=== PATIENT | male | born 1975 | race Hispanic/Latino ===

== ENCOUNTER 2018-10-18 11:32 | Observation (INO) | payer OTHER ==
[~2018-10-18] VITALS: Ht 180.3 cm; Wt 116.6 kg
[2018-10-18 12:09] LABS: BASOPHILS % 0.2 % (0.0-1.0); EOSINOPHILS % 0.1 % (0.0-6.0); LYMPHOCYTES # (AUTO) 1.8 (1.0-3.2); LYMPHOCYTES % 16.6 % (18.0-39.1); MEAN CORPUSCULAR HEMOGLOBIN 27.6 pg (28-32); MEAN CORPUSCULAR HGB CONC 32.6 g/dL (31-35); MEAN CORPUSCULAR VOLUME 84.6 fL (81-99); MONOCYTES # (AUTO) 0.8 (0.2-0.8); MONOCYTES % 6.9 % (4.4-11.3); NEUTROPHILS # (AUTO) 8.3 (2.1-6.9); NEUTROPHILS % 75.8 % (38.7-80.0); PLATELET COUNT 301 x10e3/uL (140-360); RED BLOOD COUNT 5.44 x10e6/uL (4.3-5.7); RED CELL DISTRIBUTION WIDTH 12.3 % (11.7-14.4)
[2018-10-18 12:11] LABS: BILIRUBIN,URINE NEGATIVE (NEGATIVE); CLARITY,URINE CLEAR (CLEAR); COLOR,URINE YELLOW (YELLOW); KETONES,URINE NEGATIVE (NEGATIVE); LEUKOCYTE ESTERASE ,URINE NEGATIVE (NEGATIVE); NITRITE,URINE NEGATIVE (NEGATIVE); PROTEIN,URINE DIPSTICK NEGATIVE (NEGATIVE); URINE UROBILINOGEN 0.2 mg/dL (0.2 - 1)
[2018-10-18 12:25] LABS: EPITHELIAL CELLS,URINE RARE /LPF
[2018-10-18 12:29] LABS: ALANINE AMINOTRANSFERASE 176 IU/L (0-55); ALBUMIN 4.1 g/dL (3.5-5.0); ALBUMIN/GLOBULIN RATIO 0.9 (0.8-2.0); ALKALINE PHOSPHATASE 82 IU/L (40-150); ANION GAP 13.9 mmol/L (8-16); BLOOD UREA NITROGEN 15 mg/dL (7-26); BUN/CREATININE RATIO 18 (6-25); CALCIUM 9.8 mg/dL (8.4-10.2); CARBON DIOXIDE 24 mmol/L (22-29); CHLORIDE 98 mmol/L (98-107); CREATININE, SERUM 0.84 mg/dL (0.72-1.25); EST GLOMERULAR FILTRATION RATE > 60 ML/MIN (60-); GLUCOSE 91 mg/dL (74-118); MAGNESIUM 2.2 MG/DL (1.3-2.1); POTASSIUM 3.9 mmol/L (3.5-5.1); SODIUM 132 mmol/L (136-145)
--- NOTE | 2018-10-18 13:32 | Diagnostic Imaging Report ---
EXAMINATION: CT of the abdomen and pelvis with contrast. TECHNIQUE: Spiral CT images of the abdomen and pelvis were performed from the lung bases to the lesser trochanters after the intravenous administration of 100 cc Isovue-370. Coronal and sagittal reformatted images were obtained. COMPARISON: None. CLINICAL HISTORY:Right-sided abdominal pain DISCUSSION: ABDOMEN/PELVIS: LOWER THORAX:Unremarkable. HEPATOBILIARY: No focal hepatic lesions. No intra-or extrahepatic biliary ductal dilation. The gallbladder is normal. SPLEEN: No splenomegaly. PANCREAS: No focal masses or ductal dilatation. ADRENALS: No adrenal nodules. KIDNEYS/URETERS: Left renal parenchymal cyst. No hydronephrosis, calculi, or gross mass lesion. PELVIC ORGANS/BLADDER: The bladder is normal. PERITONEUM/RETROPERITONEUM: No free air or fluid. LYMPH NODES: No intra-abdominal, retroperitoneal, pelvic or inguinal lymphadenopathy. VESSELS: Abdominal aorta, major branch vessels, and iliac arterial systems are well-visualized and patent. Portal vein, splenic vein, and central superior mesenteric vein are patent. GI TRACT: The appendix is distended, with wall thickening, enhancement, and adjacent periappendiceal inflammation. Maximum appendiceal caliber is approximately 1.2 cm. Remainder of the large bowel is unremarkable. No small bowel dilatation to suggest obstruction. BONES AND SOFT TISSUE: No osseous destructive lesions. No focal soft tissue abnormalities. IMPRESSION: Acute appendicitis without ramakrishna perforation or drainable fluid collection. Findings discussed with MAXWELL Mata at 1325 hours 10/18/18. Signed by: Dr. Artem Prieto M.D. on 10/18/2018 1:29 PM
[2018-10-18] MEDS ORDERED: SODIUM CHLORIDE 0.9% 1000ML 1,000 ML IV SCH (13:35)
[2018-10-18] MEDS ORDERED: MORPHINE SULFATE 2 MG/ML SYR 1ML IV PRN (13:45)
[2018-10-18] MEDS ORDERED: MORPHINE SULFATE INJ 4 MG/ML INJ 1ML IV PRN ×2 (13:45→18:30)
[2018-10-18] MEDS ORDERED: CEFOXITIN 2GM/ D5W 50ML 50 ML IV SCH (14:00)
[2018-10-18] MEDS ORDERED: SODIUM CHLORIDE 0.9% 50ML 50 ML ONE (14:08)
[2018-10-18] MEDS ORDERED: IOPAMIDOL 370 MG/ML 200 ML INFUS..BTL INJ ONE (14:08)
[2018-10-18] MEDS: FAMOTIDINE 20 MG/2 ML VIAL IV SCH (15:15)
[2018-10-18] MEDS: ONDANSETRON HCL INJ 2MG/ML 2ML 2 MG/ML VIAL IV PRN ×2 (15:15→21:34)
--- OUTSIDE RECORDS SUMMARY | 2018-10-18 15:36 | XMS REPORT ---
Author [facility] Address Unknown Phone Unavailable Care Team Providers Care Glass Inspector Name Role Phone Jose MORILLO Unavailable Unavailable Problems This patient has no known problems. Allergies, Adverse Reactions, Alerts This patient has no known allergies or adverse reactions. Medications This patient has no known medications. Results Test Description Test Time Test Comments Text Results Atomic Results Result Comments CT ABDOMEN/PELVIS W 2018-10-18 13:22:00 [place] [address] Patient Name: MAGDALENO RODRIGUEZ MR #: [id number] : 1975 Age/Sex: 42/M Req #: [id number] Adm Physician: Ordered by: AMADO DOMINGUEZ NP Report #: [id number] Location: ER Room/Bed: Procedure: [id number] CT/CT ABDOMEN/PELVIS W Exam Date: 10/18/18 Exam Time: 1300 REPORT STATUS: Signed EXAMINATION: CT of the abdomen and pelvis with contrast. TECHNIQUE: Spiral CT images of the abdomen and pelvis were performed from the lung bases to the lesser trochanters after the intravenous administration of 100 cc Isovue-370. Coronal and sagittal reformatted images were obtained. COMPARISON: None. CLINICAL HISTORY:Right-sided abdominal pain DISCUSSION: ABDOMEN/PELVIS: LOWER THORAX:Unremarkable. HEPATOBILIARY: No focal hepatic lesions. No intra-or extrahepatic biliary ductal dilation. The gallbladder is normal. SPLEEN: No splenomegaly. PANCREAS: No focal masses or ductal dilatation. ADRENALS: No adrenal nodules. KIDNEYS/URETERS: Left renal parenchymal cyst. No hydronephrosis, calculi, or gross mass lesion. PELVIC ORGANS/BLADDER: The bladder is normal. PERITONEUM/RETROPERITONEUM: No free air or fluid. LYMPH NODES: No intra-abdominal, retroperitoneal, pelvic or inguinal lymphadenopathy. VESSELS: Abdominal aorta, major branch vessels, and iliac arterial systems are well-visualized and patent. Portal vein, splenic vein, and central superior mesenteric vein are patent. GI TRACT: The appendix is distended, with wall thickening, enhancement, and adjacent periappendiceal inflammation. Maximum appendiceal caliber is approximately 1.2 cm. Remainder of the large bowel is unremarkable. No small bowel dilatation to suggest obstruction. BONES AND SOFT TISSUE: No osseous destructive lesions. No focal soft tissue abnormalities. IMPRESSION: Acute appendicitis without ramakrishna perforation or drainable fluid collect ion. Findings discussed with MAXWELL Dominguez at 1325 hours 10/18/18. Signed by: Dr. Dianna Leon M.D. on 10/18/2018 1:29 PM Dictated By: DIANNA LEON MD [id number] Transcribed By: IBIS on 10/18/18 1329 COPY TO: AMADO DOMINGUEZ NP
[2018-10-18] MEDS ORDERED: BUPIVACAINE HCL 0.5% INJ 30 ML VIAL INJ ONE (16:40)
[2018-10-18] MEDS ORDERED: LACTATED RINGER'S 1,000 ML ONE (16:57)
[2018-10-18] MEDS ORDERED: ACETAMINOPHEN 325 MG TAB PO PRN (18:15)
[2018-10-18] MEDS ORDERED: HYDROCODONE/APAP 7.5MG-325MG 1 EA TAB PO PRN (18:15)
[2018-10-18] MEDS ORDERED: MORPHINE SULFATE 5 MG/ML VIAL IV PRN (18:15)
[2018-10-18] MEDS ORDERED: HYDROMORPHONE 2MG/ML 2 MG/ML ML ONE (18:52)
[2018-10-18] MEDS ORDERED: MIDAZOLAM HCL 2 MG/2 ML VIAL ONE (19:07)
[2018-10-18] MEDS ORDERED: FENTANYL CITRATE/PF 100MCG/2 ML INJ ONE (19:07)
[2018-10-18] MEDS ORDERED: ROCURONIUM BROMIDE 10 MG/ML 5ML VIAL ONE (19:23)
[2018-10-18] MEDS ORDERED: PROPOFOL IV EMULSION 10 MG/ML 20 ML VIAL ONE (19:23)
[2018-10-18] MEDS ORDERED: NEOSTIGMINE 5 MG/5ML SYR ONE (19:23)
[2018-10-18] MEDS ORDERED: KETOROLAC TROMETHAMINE 30 MG/ML VIAL ONE (19:23)
[2018-10-18] MEDS ORDERED: SEVOFLURANE INHAL SOLN 250 ML PEN BTL ONE (19:23)
[2018-10-18] MEDS ORDERED: LIDOCAINE HCL 2% LOCAL INJ 5 ML SDV VIAL INJ ONE (19:23)
[2018-10-18] MEDS ORDERED: DEXAMETHASONE SOD PHOS INJ 4 MG/ML VIAL ONE (19:23)
[2018-10-18] MEDS ORDERED: ONDANSETRON HCL INJ 2MG/ML 2ML 2 MG/ML VIAL ONE (19:23)
[2018-10-18] MEDS ORDERED: ATROPINE SULFATE 1 MG/ML VIAL ONE (19:23)
[2018-10-18] MEDS ORDERED: SUCCINYLCHOLINE 200 MG/10 ML SYR ONE (19:23)
--- NOTE | 2018-10-18 19:25 | NUR ---
pt arrived to the [facility] from [facility] in a stretcher .s/p lap appy.aaox4.assessment done.no resp.distress.abdomen 3 trochar sites noted.dry and intact.abd.pain voiced 5/10.ns running to left forarm #20 .scd applied.oriented to the unit.family member at bed side.bed locked and in lowest position.phone and call light within reach.instructed to call for assistance as needed.
[2018-10-18 19:30] VITALS: BP 99/56
[2018-10-18 20:00] VITALS: BP 108/64
[2018-10-18] MEDS: SODIUM CHLORIDE 0.9% 1000ML 1,000 ML IV SCH (20:40)
[2018-10-18 21:00] VITALS: BP 100/66
--- NOTE | 2018-10-18 22:00 | NUR ---
PAIN MEDICATION GIVEN.USES INCENTIVE SPIROMETER.
[2018-10-18] MEDS: SODIUM CHLORIDE 0.9% IV SCH (22:17)
[2018-10-18] MEDS: CEFOXITIN SODIUM IV SCH (22:17)
[2018-10-19] VITALS: BP 92/51
--- NOTE | 2018-10-19 00:10 | NUR ---
Resting comfortably in the bed.
--- NOTE | 2018-10-19 00:38 | Consultation ---
DATE OF CONSULTATION: 10/18/2018 REFERRING PHYSICIAN: Dr. Kamryn Zuluaga. HISTORY OF PRESENT ILLNESS: The patient is a 42-year-old male, who presents with complaints of abdominal pain. Says the pain started yesterday periumbilical and persisted all day, now is localized to right lower quadrant with associated nausea. He has not had any fever, no vomiting. Evaluation with CT of the abdomen and pelvis reveals findings of acute appendicitis. PAST MEDICAL HISTORY: Significant for hypertension, for which he takes lisinopril. PAST SURGICAL HISTORY: He has had no previous surgery. ALLERGIES: THERE ARE NO KNOWN ALLERGIES. FAMILY HISTORY: Noncontributory. SOCIAL HISTORY: The patient does not smoke cigarettes. Rarely drinks alcohol. REVIEW OF SYSTEMS: As stated above, otherwise was negative. PHYSICAL EXAMINATION: GENERAL: The patient is awake, alert, no distress. VITAL SIGNS: The vital signs were normal. HEENT: Unremarkable. Sclerae nonicteric. NECK: Supple. No masses. LUNGS: Equal breath sounds, clear bilaterally. CARDIAC: Regular rate and rhythm with no murmur. ABDOMEN: Tender in right lower quadrant. Signs of peritonitis localized to right lower quadrant. There is no mass. EXTREMITIES: Have no edema. NEUROLOGIC: Exam was grossly intact. ASSESSMENT AND PLAN: A 42-year-old male with acute appendicitis. He will benefit from appendectomy, which I plan to schedule for today. Procedure was explained to the patient including risks, benefits, and alternatives. He understands the procedure. He has had the opportunity to ask questions. open surgery. Thank you for asking me to see Mr. Hart. MD YUMIKO Davis/JUVENAL /[id number]
--- NOTE | 2018-10-19 01:08 | Operative Report ---
DATE OF PROCEDURE: 10/18/2018 SURGEON: Artem Narayanan MD PREOPERATIVE DIAGNOSIS: Acute appendicitis. POSTOPERATIVE DIAGNOSIS: Acute appendicitis. PROCEDURE: Diagnostic laparoscopy, laparoscopic appendectomy. ROLL MILL OPERATOR: None. ANESTHESIA: General. INDICATIONS AND FINDINGS: The patient is a 42-year-old male, admitted with complaints of 1-day history of abdominal pain, localized right lower quadrant. Certainly, the patient was found to have acutely inflamed appendix. TECHNIQUE: After adequate general endotracheal anesthesia, the patient in supine position, the abdomen was prepped and draped in a sterile fashion with ChloraPrep solution. Skin in the umbilicus was infiltrated with 0.5% Marcaine. Incision made in the umbilicus, abdominal wall was elevated, and Veress needle was introduced. Pneumoperitoneum was then created. A 10 mm trocar and cannula were then passed through the umbilical wound. Laparoscopic camera was introduced. Initial laparoscopy revealed inflammatory process in the right lower quadrant. A 12 mm trocar and cannula placed suprapubically and a 5 mm trocar and cannula placed right upper quadrant. These were placed under direct vision. The cecum was elevated. There were some fibrinous adhesions around the appendix, which were broken up. A window was created between the base of the appendix and mesoappendix. The base of the appendix was divided close to the cecum with Endo-PAPITO stapler. The mesoappendix also divided with the Endo-PAPITO stapler freeing the appendix completely. Small amount of bleeding from the mesoappendix was controlled with a hemoclip and hemostasis achieved. The appendix was then placed into an Endopouch and brought out through the suprapubic cannula. Care was taken that it did not touch the abdominal wall. There, the appendectomy was inspected for hemostasis, which was seen to be adequate. It was irrigated with saline. All fluid aspirated and inspected for hemostasis, which was seen to be adequate. It was irrigated once again with saline. All fluid aspirated from the pelvis from the right side of the abdomen from above the liver. Inspected for hemostasis, which was seen to be adequate. Instruments and cannulas were then removed. Pneumoperitoneum was evacuated. Wounds were then closed. Fascia in the umbilical and suprapubic would closed with 0 Vicryl. Skin to all wounds closed with lei. Sterile dressing was applied to each wound. The patient tolerated procedure well. Estimated blood loss was 15 mL. There were no complications. All counts were correct. The patient was taken to the recovery room in satisfactory condition. MD YUMIKO Davis/JUVENAL /[id number]
--- NOTE | 2018-10-19 02:32 | NUR ---
Pt voided.stable condition.
--- NOTE | 2018-10-19 03:30 | NUR ---
PT AMBULATES TO THE BATH ROOM.VOIDED.NO PASSING GAS.
[2018-10-19 04:00] VITALS: BP 94/53
[2018-10-19] MEDS ORDERED: LISINOPRIL10 MG PO (05:35)
[2018-10-19] MEDS: CEFOXITIN SODIUM IV SCH (05:36)
[2018-10-19] MEDS: SODIUM CHLORIDE 0.9% IV SCH (05:36)
[2018-10-19] MEDS: SODIUM CHLORIDE 0.9% 1000ML 1,000 ML IV SCH (05:36)
[2018-10-19 05:55] LABS: BASOPHILS % 0.1 % (0.0-1.0); HEMATOCRIT 40.2 % (38.2-49.6); HEMOGLOBIN 12.8 g/dL (14.0-18.0); LYMPHOCYTES # (AUTO) 1.4 (1.0-3.2); LYMPHOCYTES % 14.2 % (18.0-39.1); MEAN CORPUSCULAR HEMOGLOBIN 27.6 pg (28-32); MEAN CORPUSCULAR HGB CONC 31.8 g/dL (31-35); MEAN CORPUSCULAR VOLUME 86.8 fL (81-99); MONOCYTES # (AUTO) 0.4 (0.2-0.8); MONOCYTES % 4.3 % (4.4-11.3); NEUTROPHILS # (AUTO) 8.2 (2.1-6.9); PLATELET COUNT 270 x10e3/uL (140-360); RED BLOOD COUNT 4.63 x10e6/uL (4.3-5.7); RED CELL DISTRIBUTION WIDTH 12.3 % (11.7-14.4)
--- NOTE | 2018-10-19 06:00 | NUR ---
Pt tolerated the diet.
[2018-10-19 06:21] LABS: ANION GAP 11.1 mmol/L (8-16); BLOOD UREA NITROGEN 17 mg/dL (7-26); BUN/CREATININE RATIO 21 (6-25); CALCIUM 8.4 mg/dL (8.4-10.2); CARBON DIOXIDE 23 mmol/L (22-29); CHLORIDE 102 mmol/L (98-107); CREATININE, SERUM 0.81 mg/dL (0.72-1.25); EST GLOMERULAR FILTRATION RATE > 60 ML/MIN (60-); GLUCOSE 117 mg/dL (74-118); POTASSIUM 4.1 mmol/L (3.5-5.1); SODIUM 132 mmol/L (136-145)
[2018-10-19 06:36] LABS: BAND NEUTROPHILS % (MANUAL) 4 %; LYMPHOCYTES % (MANUAL) 13 % (19-48); MONOCYTES % (MANUAL) 3 % (3.4-9.0); NEUTROPHILS % (MANUAL) 80 % (40-74); PLATELET ESTIMATE ADEQUATE; PLATELET MORPHOLOGY COMMENT NORMAL; RBC MORPHOLOGY COMMENT NORMAL
--- NOTE | 2018-10-19 06:50 | NUR ---
REPORT GIVEN TO MORNING RN.WALKING ROUNDS DONE.STABLE CONDITION.
[2018-10-19 07:50] VITALS: BP 90/53
[2018-10-19 08:00] VITALS: BP 90/53
[2018-10-19] MEDS: FAMOTIDINE 20 MG/2 ML VIAL IV SCH (09:10)
--- NOTE | 2018-10-19 11:57 | NUR ---
PT DISCHARGING HOME NO NEEDS
[2018-10-19 12:00] VITALS: BP 106/57
[2018-10-19] MEDS ORDERED: NORCO 5-325 TA1 EACH PO (12:12)
--- NOTE | 2018-10-19 12:47 | NUR ---
patient alert and oriented, with tolerable pain. discharge instructions given to patient and , both verbalized understanding. IV discontinued at this time, catheter in tact and small dressing applied. patient refused wheelchair assistance and will be escorted from unit to personal auto for to drive home.
--- NOTE | 2018-10-19 22:57 | Discharge Summary ---
PRIMARY CARE DOCTOR: Cande Thompson MD. FINAL DIAGNOSIS: Acute appendicitis. SECONDARY DIAGNOSIS: Hypertension. CONSULTANTS: Dr. Narayanan, Surgeon. PROCEDURES/STUDIES PERFORMED: CT of the abdomen and pelvis, and laparoscopic appendectomy. HISTORY: Per [facility] and [facility]. HOSPITAL COURSE: The patient underwent uneventful laparoscopic appendectomy. Currently, the patient is tolerating p.o., ambulating, and is passing gas. He is asymptomatic, mild hyponatremia is stable. His white count normalized and he is going home today. I have updated his primary care doctor about this hospitalization. The patient will follow up with Dr. Narayanan in a week. The patient was seen and examined today. The patient also received IV antibiotics while in the hospital. CONDITION ON DISCHARGE: Improved. DISCHARGE MEDICATIONS: Please see medication reconciliation form. MD SENG Avina/JUVENAL /[id number] cc: [facility]
== END 2018-10-19 12:47 | disposition home or self-care (01) ==
LOC: ER 11:32 → ERHOLD 15:34 → UNDOADMOB 15:34 → OR 17:00 → INTOOBSV 19:59 → MED/SURG 19:59
PROVIDERS: ADMIT Internal Medicine; ATTEND Internal Medicine
DX: K35.80 Unspecified acute appendicitis (principal); I10 Essential (primary) hypertension; E87.1 Hypo-osmolality and hyponatremia; Z82.49 Family history of ischemic heart disease and other diseases of the circulatory system
CPT/HCPCS: 36415 ×2; 44970; 74177; 80048; 80053; 81001; 83605; 83690; 83735; 85025 ×2; 88304; 99284; G0378 ×2; J0461; J0694 ×4; J1100; J1170; J1885; J2001; J2250; J2270; J2405; J2704; J7030 ×2; J7121; Q9967